=== PATIENT | male | born 1955 | race Caucasian/White ===

== ENCOUNTER → 2017-11-08 08:12 | Outpatient (CLI) | payer OTHER, SELFPAY ==
[2017-11-08 09:41] LABS: AST(SGOT) 24 U/L (15-37); Alanine Aminotransfer ALT/SGPT 31 U/L (16-61); Albumin, Serum 3.8 g/dL (3.2-5.0); Alkaline Phosphatase 76 U/L (45-117); Bilirubin, Direct 0.16 mg/dL (0.00-0.30); Cholesterol 104 mg/dL (200); Globulin 3.2 g/dL (2.2-4.2); High Density Lipoprotein 35 mg/dL; Triglycerides 89 mg/dL; Very Low Density Lipoprotein 18 mg/dL (5-40)
== END ==
PROVIDERS: Family Provider Family Medicine; PCP Family Medicine; Visit Provider Internal Medicine Cardiovascular Disease
DX: I25.10 Atherosclerotic heart disease of native coronary artery without angina pectoris (principal); Z95.5 Presence of coronary angioplasty implant and graft; E78.5 Hyperlipidemia, unspecified; I25.2 Old myocardial infarction; I10 Essential (primary) hypertension; Z79.899 Other long term (current) drug therapy; Z68.26 Body mass index [BMI] 26.0-26.9, adult
CPT/HCPCS: 36415; 80061; 80076

== ENCOUNTER → 2017-12-28 13:36 | Outpatient (CLI) | payer OTHER, SELFPAY ==
--- NOTE | 2017-12-28 13:38 | STE_ITS ---
Reason For Study: CAD/ASHD Stress Results Protocol: Stress Echocardiogram Maximum Predicted HR: 158 bpm Target HR: 134 bpm% Maximum Pr edicted HR: 107 % DurationHeart Rate Stage (mm:ss) (bpm) BPCom ment BASELINE 80 164/86 MARIANO PROTOCOL- STAGE 1 3:00 10 7 178/76 MARIANO PROTOCOL- STAGE 2 3:00 12 5 210/72 MARIANO PROTOCOL- STAGE 3 3:00 15 5 202/72 MARIANO PROTOCOL- STAGE 4 0:39 16 9 / LEG FATIGUE RECOVERY 98 164/70 Stress Duration: 9:39 mm:ss Maximum Stress HR: 169 bpm Baseline Echocardiogram Findings The estimated ejection fraction is 65 %. Stress Echo Wall motion Data Resting WMIntermediate WMStress WM Resting Wall Motion Wall Motion Stress No regional wall motion No regional wall motion abnormalities noted. abnormalities noted. EKG Data The baseline ECG demonstrates normal sinus rhythm with at rate of _ beats per minute. The patient exercised according to the regular Mariano protocol for a total duration of 9:39. The maximum heart rate attained was 193 beats per minute. This was 122% of maximum predicted heart rate. The patient exercised into stage 4 of the Mariano protocol. At peak exercise, upsloping ST changes only were noted, which did not meet the criteria for ischemia. No clinical angina was noted. No arrhythmias noted. Interpretation Summary The estimated ejection fraction is 65 %. Normal, adequate, treadmill echocardiogram. Negative for ischemia by EKG and echocardiographic criteria. No anginal symptoms noted. No arrhythmias noted. Hypertensive blood pressure response to exercise. Above average exercise capacity for age. Final LVEF is 75%. No complications. Ordering Physician: Luis Alberto Byrnes Referring Physician: Luis Alberto Byrnes Performed By: Caryn Carlisle, TATICS, RVT
== END ==
PROVIDERS: Family Provider Family Medicine; PCP Family Medicine; Visit Provider Internal Medicine Cardiovascular Disease
DX: I25.10 Atherosclerotic heart disease of native coronary artery without angina pectoris (principal); I10 Essential (primary) hypertension; E66.3 Overweight; E78.5 Hyperlipidemia, unspecified; Z95.5 Presence of coronary angioplasty implant and graft
CPT/HCPCS: 93017; 93350

== ENCOUNTER → 2018-06-12 10:39 | Outpatient (CLI) | payer OTHER, SELFPAY ==
[2017-11-13 13:29] VITALS: BMI 26.9
[2018-06-12 12:10] LABS: Anion Gap 7 (5-15); BUN 17 mg/dL (7-18); BUN/Creat Ratio 12.7 RATIO (10-20); Calcium,Total 8.7 mg/dL (8.5-10.1); Chloride 103 mmol/L (98-107); Creatinine, Serum 1.34 mg/dL (0.70-1.30); EST Glomerular Filtration Rate 57 mL/min (>60); Est Glom Filt Rate - Afr Amer 69 mL/min (>60); Glucose 135 mg/dL (74-106); Potassium 3.6 mmol/L (3.5-5.1); Sodium Level 139 mmol/L (136-145)
[2018-06-12 12:12] LABS: AST(SGOT) 24 U/L (15-37); Alanine Aminotransfer ALT/SGPT 35 U/L (16-61); Albumin, Serum 3.8 g/dL (3.2-5.0); Alkaline Phosphatase 79 U/L (45-117); Bilirubin, Direct 0.14 mg/dL (0.00-0.30); Cholesterol 164 mg/dL (200); Globulin 3.6 g/dL (2.2-4.2); High Density Lipoprotein 36 mg/dL; Protein, Total 7.4 g/dL (6.4-8.2); Triglycerides 216 mg/dL; Very Low Density Lipoprotein 43 mg/dL (5-40)
== END ==
PROVIDERS: Physician Assistant Medical; Family Provider Family Medicine; PCP Family Medicine; Referring Provider Family Medicine; Visit Provider Family Medicine
DX: I10 Essential (primary) hypertension (principal); Z12.5 Encounter for screening for malignant neoplasm of prostate
CPT/HCPCS: 36415; 80048; 80061; 80076; 84153; G0103

== ENCOUNTER → 2018-08-10 09:25 | Outpatient (CLI) | payer OTHER, SELFPAY ==
[2018-06-18 15:06] VITALS: BMI 27.9
[2018-08-10 11:12] LABS: Cholesterol 100 mg/dL (200); High Density Lipoprotein 37 mg/dL; Triglycerides 117 mg/dL; Very Low Density Lipoprotein 23 mg/dL (5-40)
[2018-08-10 11:20] LABS: AST(SGOT) 22 U/L (15-37); Alanine Aminotransfer ALT/SGPT 33 U/L (16-61); Albumin, Serum 4.1 g/dL (3.2-5.0); Alkaline Phosphatase 78 U/L (45-117); Bilirubin, Direct 0.12 mg/dL (0.00-0.30); Globulin 3.7 g/dL (2.2-4.2); Protein, Total 7.8 g/dL (6.4-8.2)
== END ==
PROVIDERS: Family Provider Family Medicine; PCP Family Medicine; Referring Provider Internal Medicine Cardiovascular Disease; Visit Provider Internal Medicine Cardiovascular Disease
DX: E78.5 Hyperlipidemia, unspecified (principal); I25.10 Atherosclerotic heart disease of native coronary artery without angina pectoris
CPT/HCPCS: 36415; 80061; 80076

== ENCOUNTER → 2019-02-15 10:56 | Outpatient (CLI) | payer OTHER, SELFPAY ==
[2019-01-17 13:57] VITALS: BMI 27.6
--- NOTE | 2019-02-15 11:00 | ECHOD_ITS ---
Reason For Study: CAD/ASHD Procedure This was a 2D Doppler, Color Flow transthoracic echocardiogram. Exam performed in department. Left Ventricle Mild eccentric left ventricular hypertrophy. The estimated ejection fraction is 65 %. Normal diastology for age. No regional wall motion abnormalities noted. Right Ventricle Normal size and thickness. Normal systolic function. Atria Normal left atrium. Normal right atrium. Normal atrial septum. Mitral Valve The mitral valve is structurally normal. No prolapse or stenosis seen. Tricuspid Valve Normal tricuspid valve. Trivial tricuspid valve insufficiency. Right ventricular systolic pressure estimated to be 31 mmHg. Aortic Valve Normal aortic valve. Trisinus/trileaflet aortic valve. Pulmonic Valve Normal pulmonic valve. Trivial pulmonic valve insufficiency. Great Vessels Normal aortic root. Normal arch. Normal inferior vena cava. Inferior vena cava collapse with sniff. Pericardium/Pleural No pericardial effusion. MMode/2D Measurements & Calculations LVIDd: 4.3 cm IVSd: 1.5 cm LA dimension: 4.2 cm LVIDs: 2.8 cm LVPWd: 1.1 cm FS: 34.3 % LAV(MOD-bp): 46.4 ml LA A4 area: 18.1 cm2 RA A4 area: 16.2 cm2 LAV(MOD-bp) Indexed: 24.0 ml/m2 LAV(MOD-sp2): 42.3 ml LAV(MOD-sp4): 50.7 ml Time Measurements MV dec time: 0.25 sec Doppler Measurements & Calculations MV E max terence: 69.1 cm/sec Lat Peak E' Terence: 9.2 cm/sec Med Peak E' Terence: 7.5 cm/sec MV A max terence: 51.4 cm/sec E/E' lat: 7.5 E/E' med: 9.2 MV E/A: 1.3 MV V2 max: 70.6 cm/sec MV P1/2t max terence: 70.6 cm/sec Ao V2 max: 97.1 cm/sec MV max P.0 mmHg MV P1/2t: 79.9 msec Ao max P.8 mmHg MV V2 mean: 36.3 cm/sec MV dec slope: 258.8 cm/sec2 Ao V2 mean: 62.2 cm/sec MV mean P.63 mmHg MVA(P1/2t): 2.8 cm2 Ao mean P.8 mmHg MV V2 VTI: 26.3 cm Ao V2 VTI: 19.0 cm LV V1 max: 80.3 cm/sec PA V2 max: 105.0 cm/sec PI end-d terence: 83.8 cm/sec LV V1 max P.6 mmHg LV V1 mean P.2 mmHg LV V1 mean: 50.2 cm/sec LV V1 VTI: 17.3 cm TR max terence: 253.9 cm/sec TR max P.8 mmHg Interpretation Summary The estimated ejection fraction is 65 %. Normal diastology for age. Mild eccentric left ventricular hypertrophy. Right ventricular systolic pressure estimated to be 31 mmHg. Compared to echo report dated 03/03/2014, no appreciable changes noted. Ordering Physician: Luis Alberto Byrnes Referring Physician: Jarred Larsen MD Performed By: Moises Valle RCS
== END ==
PROVIDERS: Family Provider Family Medicine; PCP Family Medicine; Referring Provider Internal Medicine Cardiovascular Disease; Visit Provider Internal Medicine Cardiovascular Disease
DX: I25.10 Atherosclerotic heart disease of native coronary artery without angina pectoris (principal); I21.4 Non-ST elevation (NSTEMI) myocardial infarction; E78.5 Hyperlipidemia, unspecified; I10 Essential (primary) hypertension; Z95.5 Presence of coronary angioplasty implant and graft
CPT/HCPCS: 93306

== ENCOUNTER → 2019-02-21 09:06 | Outpatient (CLI) | payer OTHER, SELFPAY ==
[2019-01-17 13:57] VITALS: BMI 27.6
--- NOTE | 2019-02-21 09:08 | STEWCON_ITS ---
Reason For Study: CAD Stress Results Protocol: Mariano Protocol Maximum Predicted HR: 157 bpm Target HR: 133 bpm % Maximum Predicted HR: 97 % DurationHeart Rate Stage (mm:ss) (bpm) BP Comment Baseline 86 150/78No Chest Pain; 4 ML Diluted Definity Given Mariano Protocol Stage I 3:00 100 158/78No Chest Pain Mariano Protocol Stage II 3:00 120 174/70No Chest Pain Mariano Protocol Stage III 3:00 139 182/68No Chest Pain; Mild Dyspnea Mariano Protocol Stage IV 1:00 153 / No Chest Pain; Moderate Dyspnea Recovery 97 150/68No Chest Pain Stress Duration: 10:00 mm:ss Maximum Stress HR: 153 bpm METS: 13 Baseline Echocardiogram Findings The estimated ejection fraction is 65 %. Stress Echo Wall motion Data Resting WM Intermediate WM Stress WM Resting Wall Motion Wall Motion Stress No regional wall motion No regional wall motion abnormalities noted. abnormalities noted. EKG Data The baseline ECG displays normal sinus rhythm. The patient exercised according to the regular Mariano protocol for a total duration of 10:00. The maximum heart rate attained was 169 beats per minute. This was 107% of maximum predicted heart rate. The patient exercised into stage 4 of the Mariano protocol. During stress, there were no ST or T wave changes noted to suggest ischemia. No clinical angina was noted. Interpretation Summary The estimated ejection fraction is 65 %. Normal, adequate, treadmill echocardiogram. Negative for ischemia by EKG and echocardiographic criteria. No anginal symptoms noted. Rare PVCs noted. Appropriate blood pressure response to exercise. Average exercise capacity for age. Final LVEF is 75%. Test terminated due to fatigue. Decreased sensitivity due to poor echo windows requiring Definity agent. No complications. The study was technically difficult. Contrast injection was performed. Ordering Physician: Luis Alberto Byrnes Referring Physician: Jarred Larsen Performed By: Irma Ortega RDCS
== END ==
PROVIDERS: Family Provider Family Medicine; PCP Family Medicine; Referring Provider Internal Medicine Cardiovascular Disease; Visit Provider Internal Medicine Cardiovascular Disease
DX: I25.10 Atherosclerotic heart disease of native coronary artery without angina pectoris (principal); I10 Essential (primary) hypertension; E78.5 Hyperlipidemia, unspecified
CPT/HCPCS: 93017; 93350; Q9957; A4216; C8928

== ENCOUNTER → 2019-03-15 10:45 | Outpatient (CLI) | payer OTHER, SELFPAY ==
[2019-01-17 13:57] VITALS: BMI 27.6
[2019-03-15 12:39] LABS: AST(SGOT) 27 U/L (15-37); Alanine Aminotransfer ALT/SGPT 35 U/L (16-61); Albumin, Serum 3.7 g/dL (3.2-5.0); Alkaline Phosphatase 81 U/L (45-117); Bilirubin, Direct 0.11 mg/dL (0.00-0.30); Cholesterol 132 mg/dL (200); Globulin 3.5 g/dL (2.2-4.2); High Density Lipoprotein 34 mg/dL; Protein, Total 7.2 g/dL (6.4-8.2); Triglycerides 182 mg/dL; Very Low Density Lipoprotein 36 mg/dL (5-40)
[2019-03-15 15:10] LABS: Anion Gap 4 (5-15); BUN 17 mg/dL (7-18); Calcium,Total 8.6 mg/dL (8.5-10.1); Chloride 106 mmol/L (98-107); Creatinine, Serum 1.31 mg/dL (0.70-1.30); EST Glomerular Filtration Rate 59 mL/min (>60); Est Glom Filt Rate - Afr Amer 71 mL/min (>60); Glucose 118 mg/dL (74-106); Potassium 4.1 mmol/L (3.5-5.1); Sodium Level 138 mmol/L (136-145)
== END ==
PROVIDERS: Family Provider Family Medicine; PCP Family Medicine; Referring Provider Internal Medicine Cardiovascular Disease; Visit Provider Internal Medicine Cardiovascular Disease
DX: E78.5 Hyperlipidemia, unspecified (principal); I10 Essential (primary) hypertension
CPT/HCPCS: 36415; 80048; 80061; 80076

== ENCOUNTER → 2020-03-03 07:54 | Outpatient (CLI) | payer OTHER, SELFPAY ==
[2020-03-02 14:43] VITALS: BMI 27.3
[2020-03-03 11:23] LABS: AST(SGOT) 19 U/L (15-37); Alanine Aminotransfer ALT/SGPT 30 U/L (16-61); Albumin, Serum 3.8 g/dL (3.2-5.0); Alkaline Phosphatase 78 U/L (45-117); Bilirubin, Direct 0.15 mg/dL (0.00-0.30); Cholesterol 128 mg/dL (200); Globulin 3.5 g/dL (2.2-4.2); High Density Lipoprotein 37 mg/dL; Protein, Total 7.3 g/dL (6.4-8.2); Triglycerides 126 mg/dL; Very Low Density Lipoprotein 25 mg/dL (5-40)
== END ==
PROVIDERS: PCP Family Medicine; Referring Provider Internal Medicine Cardiovascular Disease; Visit Provider Internal Medicine Cardiovascular Disease
DX: E78.5 Hyperlipidemia, unspecified (principal); I25.10 Atherosclerotic heart disease of native coronary artery without angina pectoris
CPT/HCPCS: 36415; 80061; 80076

== ENCOUNTER → 2021-05-25 09:53 | Outpatient (CLI) | payer MEDICARE, OTHER, SELFPAY ==
[2021-05-25 11:13] LABS: Absolute Lymphocyte Count 2.39 X10^3/uL (0.83-4.51); Absolute Neutrophil Count 3.5 X10^3/uL (2.0-7.7); Basophil# 0.03 X10^3/uL; Basophil% 0.4 % (0-1); Eosinophil# 0.25 X10^3/uL; Eosinophils% 3.7 % (0-5); Hematocrit 49.6 % (40-54); Hemoglobin 16.1 g/dL (13.0-16.5); Lymphocyte # 2.39 X10^3/ul (0.83-4.51); Lymphocyte % 35.1 % (19-41); Mean Corp Hgb Conc 32.5 g/dL (32-36); Mean Corpuscular Hgb 28.7 pg (27.0-32.0); Mean Corpuscular Volume 88.4 fL (80-94); Mean Platelet Vol. 9.3 fl (6.2-12.0); Monocyte# 0.58 X10^3/uL; Monocyte% 8.5 % (0-10); NRBC Flagged by Analyzer 0 % (0-5); Neutrophil # 3.53 X10^3/uL (2.7-7.7); Platelet Count 336 K/mm3 (150-450); RBC Distribution Width CV 12.1 % (11.6-14.6); Red Blood Count 5.61 M/mm3 (4.6-6.2); White Blood Count 6.8 K/mm3 (4.4-11.0)
[2021-05-25 11:45] LABS: AST(SGOT) 27 U/L (15-37); Alanine Aminotransfer ALT/SGPT 38 U/L (16-61); Albumin, Serum 3.9 g/dL (3.2-5.0); Alkaline Phosphatase 100 U/L (45-117); Anion Gap 6 (5-15); BUN 18 mg/dL (7-18); BUN/Creat Ratio 14.5 RATIO (10-20); Calcium,Total 9.1 mg/dL (8.5-10.1); Chloride 102 mmol/L (98-107); Cholesterol 146 mg/dL (200); Creatinine, Serum 1.24 mg/dL (0.70-1.30); EST Glomerular Filtration Rate 62 mL/min (>60); Est Glom Filt Rate - Afr Amer 75 mL/min (>60); Globulin 4.1 g/dL (2.2-4.2); Glucose 149 mg/dL (74-106); High Density Lipoprotein 34 mg/dL; Potassium 4.3 mmol/L (3.5-5.1); Sodium Level 138 mmol/L (136-145); Triglycerides 202 mg/dL; Very Low Density Lipoprotein 40 mg/dL (5-40)
== END ==
PROVIDERS: PCP Family Medicine; Referring Provider Family Medicine; Visit Provider Family Medicine
DX: I25.10 Atherosclerotic heart disease of native coronary artery without angina pectoris (principal); E55.9 Vitamin D deficiency, unspecified
CPT/HCPCS: 36415; 80053; 80061; 82306; 85025

== ENCOUNTER → 2022-06-27 | Outpatient (CLI) | payer MEDICARE, OTHER, SELFPAY ==
[2022-06-27 15:49] LABS: Vitamin D,25 Hydroxy 58.4 ng/mL
[2022-06-27 16:06] LABS: ALB/GLOB Ratio 1.1 RATIO (0.9-2.4); AST(SGOT) 25 U/L (15-37); Alanine Aminotransfer ALT/SGPT 46 U/L (16-61); Albumin, Serum 3.8 g/dL (3.2-5.0); Alkaline Phosphatase 89 U/L (45-117); Anion Gap 7 (5-15); BUN 20 mg/dL (7-18); BUN/Creat Ratio 17.1 RATIO (10-20); Chloride 106 mmol/L (98-107); Cholesterol 161 mg/dL (200); Creatinine, Serum 1.17 mg/dL (0.70-1.30); EST Glomerular Filtration Rate 66 mL/min (>60); Est Glom Filt Rate - Afr Amer 80 mL/min (>60); Globulin 3.5 g/dL (2.2-4.2); Glucose 151 mg/dL (74-106); High Density Lipoprotein 36 mg/dL; PSA,Total - Annual Screen 1.44 ng/mL (0.00-4.00); Potassium 4.7 mmol/L (3.5-5.1); Protein, Total 7.3 g/dL (6.4-8.2); Sodium Level 141 mmol/L (136-145); Triglycerides 200 mg/dL; Very Low Density Lipoprotein 40 mg/dL (5-40)
== END | disposition home or self-care (01) ==
LOC: MFPLAB 11:15
PROVIDERS: PCP Family Medicine; Visit Provider Family Medicine
DX: E11.9 Type 2 diabetes mellitus without complications (principal); E55.9 Vitamin D deficiency, unspecified; Z12.5 Encounter for screening for malignant neoplasm of prostate
CPT/HCPCS: 36415; 80053; 80061; 82306; 84153; 84403; 84443; G0103

== ENCOUNTER → 2023-03-30 | Outpatient (CLI) | payer MEDICARE, OTHER, SELFPAY ==
[2023-03-30 09:33] LABS: Vitamin B12 1015 pg/mL (211-911)
[2023-03-30 09:34] LABS: AST(SGOT) 37 U/L (15-37); Alanine Aminotransfer ALT/SGPT 49 U/L (16-61); Albumin, Serum 3.8 g/dL (3.2-5.0); Alkaline Phosphatase 88 U/L (45-117); Anion Gap 2 (5-15); BUN 20 mg/dL (7-18); BUN/Creat Ratio 16.5 RATIO (10-20); Calcium,Total 8.8 mg/dL (8.5-10.1); Chloride 110 mmol/L (98-107); Cholesterol 124 mg/dL (200); Creatinine, Serum 1.21 mg/dL (0.70-1.30); EST Glomerular Filtration Rate 64 mL/min (>60); Est Glom Filt Rate - Afr Amer 77 mL/min (>60); Globulin 3.7 g/dL (2.2-4.2); Glucose 143 mg/dL (74-106); High Density Lipoprotein 35 mg/dL; Potassium 3.9 mmol/L (3.5-5.1); Protein, Total 7.5 g/dL (6.4-8.2); Sodium Level 140 mmol/L (136-145); Thyroid Stim Hormone (TSH) 3.65 uIU/mL (0.358-3.74); Triglycerides 159 mg/dL; Very Low Density Lipoprotein 32 mg/dL (5-40)
== END | disposition home or self-care (01) ==
PROVIDERS: PCP Family Medicine; Referring Provider Family Medicine; Visit Provider Family Medicine
DX: E11.9 Type 2 diabetes mellitus without complications (principal)
CPT/HCPCS: 36415; 80053; 80061; 82607; 84403; 84443

== ENCOUNTER 2023-11-17 19:25 | Emergency (ER) | payer MEDICARE, OTHER, SELFPAY ==
[2023-11-17 19:26] VITALS: BP 152/70; PULSE 74; RESP 18; TEMP 36.6; O2SAT 93
--- NOTE | 2023-11-17 19:57 | RAD_ITS ---
STUDY: X-RAY - LEFT ANKLE REASON FOR EXAM: Male, 68 years old. fall TECHNIQUE: view(s) of the ankle. COMPARISON: None. FINDINGS: Acute slightly posteriorly displaced oblique fracture of the distal left fibula at the level tibial plafond. Normal medial and lateral malleoli. Slight lateral subluxation of tibiotalar joint. Normal visualized talus and calcaneus. The visualized subtalar, talonavicular, calcaneocuboid and tarsal articulations are normal. Lateral soft tissue swelling. RAD/Ankle min 3 Views IMPRESSION: Slight lateral subluxation of the tibiotalar joint with a posteriorly displaced oblique fracture of the distal fibula at the tibial plafond. Electronically Signed: Oj Bloom MD at 20:52 EDT ,
--- NOTE | 2023-11-17 20:49 | EDS_ITS ---
HPI <MARLEE Russo - Last Filed: 11/17/23 21:39> HPI - Fall History of Present Illness Chief Complaint: Fall Narrative Narrative: Patient presenting today with left ankle pain due to a mechanical fall that occurred this evening. He reports that he was on a ladder when the ladder fell, he got his left foot stuck between 2 of the steps causing it to bend awkwardly. He has not been able to put weight onto his left ankle due to pain. He denies hitting his head or any other injury. PFS <MARLEE Russo - Last Filed: 11/17/23 21:39> FORMERLY [facility], 1928–1983 Medical History (Updated 11/17/23 @ 21:08 by MARLEE Russo) Atherosclerotic heart disease of [place] coronary artery without angina pectoris HLD (hyperlipidemia) HTN (hypertension) NSTEMI (non-ST elevated myocardial infarction) Overweight (BMI 25.0-29.9) Unstable angina Home Medications aspirin 81 mg tablet,delayed release (Adult Aspirin Regimen) 81 mg PO QDAY 06/28/17 [History Last Taken Unknown] amlodipine 5 mg tablet (Norvasc) 5 mg PO DAILY #90 tabs 09/10/19 [Rx Last Taken Unknown] losartan 50 mg tablet 50 mg PO BID #180 tabs 02/13/20 [Rx Last Taken Unknown] metoprolol tartrate 50 mg tablet 50 mg PO BID #180 tabs 02/14/20 [Rx Last Taken Unknown] L.ac,demetra,par,plan,rah-B.an,bi-L.la 7.5 billion cell oral powder packet (OMNi- BiOTiC Stress Release) 1 ea PO DAILY 11/17/23 [History Last Taken Unknown] ascorbic acid (vitamin C) 500 mg chewable tablet (Acerola C) 500 mg PO 4X/DAY 11/17/23 [History Last Taken Unknown] calcium carbonate (Adeline-Merna Heartburn Chew) 300 mg PO DAILY PRN dyspepsia 11/17/23 [History Last Taken Unknown] cholecalciferol (vitamin D3) 25 mcg (1,000 unit) chewable tablet (Vitamin D3) 1,000 unit PO 4X/DAY 11/17/23 [History Last Taken Unknown] coenzyme Q10 50 mg capsule (Co Q-10) 50 mg PO BID 11/17/23 [History Last Taken Unknown] dapagliflozin propanediol 5 mg tablet (Farxiga) 5 mg PO DAILY 11/17/23 [History Last Taken Unknown] glucosamine 500 mg-msm 100 mg-vit C 20 ye-fzzlw-rpzn-primrose capsule (Joint Support Complex) 1 cap PO BID 11/17/23 [History Last Taken Unknown] hydrocodone-acetaminophen 5-325mg 5mg-325mg 1 tab PO Q6H PRN PRN Pain 3 days #10 TABLETS 11/17/23 [Rx Last Taken Unknown] multivitamin (Daily Multi-Vitamin tablet) 1 tab PO BID 11/17/23 [History Last Ta dana Unknown] rosuvastatin 40 mg tablet 40 mg PO DAILY 11/17/23 [History Last Taken Unknown] sodium chloride 0.65 % nasal spray aerosol (Altamist) 1 spray intranasal DAILY 11/17/23 [History Last Taken Unknown] triamcinolone acetonide 55 mcg nasal spray aerosol (24 Hour Nasal Allergy) 1 spray intranasal DAILY 11/17/23 [History Last Taken Unknown] Allergy/AdvReac Type Severity Reaction Status Date / Time hydrochlorothiazide AdvReac UTI-like Verified 11/17/23 19:29 symptoms: urinary pain Family History Father CAD (coronary artery disease) Myocardial infarction, Onset Age: 40 Surgical History Hx of appendectomy Postsurgical percutaneous transluminal coronary angioplasty (PTCA) status (03/03/14) Presence of stent in coronary artery (03/03/14) Social History Smoking Status: Never smoker alcohol intake: never substance use type: does not use ROS <MARLEE Russo - Last Filed: 11/17/23 21:39> ROS ED Constitutional Constitutional ED: Denies chills or fever(s) Cardiovascular Cardiovascular: Denies chest pain Respiratory/Chest Respiratory/Chest: Denies cough or dyspnea Gastrointestinal Gastrointestinal: Denies abdominal pain, nausea or vomiting Musculoskeletal Musculoskeletal: Reports arthralgias; Denies back pain or neck pain Integumentary Denies Abrasions Neurologic Neurologic: Denies paresthesias or weakness EXAM <MARLEE Russo - Last Filed: 11/17/23 21:39> Physical Exam Const Vital Signs: 11/17/23 19:26 11/17/23 21:05 11/17/23 21:26 Temperature 97.8 F 98.0 F Temperature Source Temporal Pulse Rate 74 80 Respiratory Rate 18 16 Respiratory Effort Normal Respiratory Depth Normal Respiratory Pattern Normal Blood Pressure 152/70 H 143/108 H Blood Pressure Mean 97 119 Pulse Ox 93 100 Oxygen Delivery Method Room Air Room Air Positive well nourished, well developed and no apparent distress General Appearance ED: well developed HEENT Reports normocephalic and head/scalp atraumatic Mouth ED: Yes moist mucous membranes normal Eyes PERRL and EOMs intact bilaterally Neck full ROM and supple Chest Wall inspection of chest normal Resp normal respiratory effort and clear to auscultation bilaterally Cardio regular rate and regular rhythm GI soft to palpation, non-tender, non-distended and no masses Back/Spine normal ROM and normal to inspection Extremity Extremity Narrative: Edema and pain to palpation to the left lateral malleolus, no tenderness to the left foot. Left DP pulse 2+, good capillary refill, sensation intact. Limited ROM to the left ankle due to pain. No proximal fibular tenderness. Neuro oriented x3, CN's II-XII intact bilaterally, moves all extremities, no focal motor deficits and no sensory deficits noted Sensorium / Orientation: awake and alert Psych mental status grossly normal and thought process normal Skin no rashes or lesions noted and no wounds <Dr. Tye Mcadams MD - Last Filed: 11/18/23 00:44> Physical Exam Const Vital Signs: 11/17/23 19:26 11/17/23 21:05 11/17/23 21:26 Temperature 97.8 F 98.0 F Temperature Source Temporal Pulse Rate 74 80 Respiratory Rate 18 16 Respiratory Effort Normal Respiratory Depth Normal Respiratory Pattern Normal Blood Pressure 152/70 H 143/108 H Blood Pressure Mean 97 119 Pulse Ox 93 100 Oxygen Delivery Method Room Air Room Air MDM <MARLEE Russo - Last Filed: 11/17/23 21:39> [facility] Narrative Medical decision making narrative: Patient presenting today with a fracture to his left lateral malleolus with widening of the mortise. I did offer analgesia, he declines. Spoke with podiatry, patient is to be nonweightbearing and will likely require surgery. EKG was obtained for preoperative purposes, normal sinus rhythm. Patient was provided with crutches and placed in a splint. He tolerated this well. He will be given a prescription for [place] and RICE instructions. He will be discharged home in stable condition. Lab Data Attestation: I reviewed the patient's lab results. Lab results narrative: WBC 12.1 BUN 21, creatinine 1.34 Labs: Laboratory Results - last 24 hr 11/17/23 21:05 WBC 12.1 H RBC 5.42 Hgb 15.8 Hct 47.4 MCV 87.5 MCH 29.2 MCHC 33.3 RDW Std Deviation 40.9 RDW Coeff of Smiley 12.7 Plt Count 285 MPV 8.9 Immature Gran % (Auto) 0.200 Neut % (Auto) 79.1 H Lymph % (Auto) 12.1 L Ida % (Auto) 8.0 Eos % (Auto) 0.3 Baso % (Auto) 0.3 Absolute Neuts (auto) 9.6 H Absolute Lymphs (auto) 1.47 Nucleated RBC % 0 Sodium 140 Potassium 3.9 Chloride 109 H Carbon Dioxide 25.0 Anion Gap 6 BUN 20 H Creatinine 1.34 H Estim Creat Clear Calc 56.35 Est GFR (MDRD) Af Amer 68 Est GFR (MDRD) Non-Af 56 L BUN/Creatinine Ratio 14.9 Glucose 150 H Calcium 9.7 Radiography X-Ray: Read by ED Physician Diagnostic Testing: Clinical Impression(s) from Imaging Studies Ankle X-Ray 11/17/23 19:57 IMPRESSION: Slight lateral subluxation of the tibiotalar joint with a posteriorly displaced oblique fracture of the distal fibula at the tibial plafond. Electronically Signed: Oj Bloom MD at 20:52 EDT , Chest X-Ray 11/17/23 21:18 IMPRESSION: No active disease. Electronically Signed: Oj Bloom MD at 22:19 EDT , EKG Initial EKG: Comments: 79 bpm, normal sinus rhythm, no ST elevation, reviewed and interpreted by attending ED physician <Dr. Tye Mcadams MD - Last Filed: 11/18/23 00:44> [facility] Narrative Medical decision making narrative: Patient presenting today with a fracture to his left lateral malleolus with widening of the mortise. I did offer analgesia, he declines. Spoke with podiatry, patient is to be nonweightbearing and will likely require surgery. EKG was obtained for preoperative purposes, normal sinus rhythm. Patient was provided with crutches and placed in a splint. He tolerated this well. He will be given a prescription for [place] and RICE instructions. He will be discharged home in stable condition. I have personally performed a face to face assessment of the patient and have reviewed the MARYAM Note. I performed a substantive portion of the visit including all aspects of the following. My booker findings include: History is patient was on a ladder. The ladder collapsed. His foot/ankle was caught between the first and second rung. His weight came down a ladder and injured his ankle. He was unable to bear weight. Patient has paresthesia, anesthesia medics. His past medical history of atherosclerotic heart disease, hypertension, hyperlipidemia. Exam is patient has pain outpatient over the lateral malleolus and over the deltoid ligament medially. There is no like for drawer testing. No pain the patient of the base of the fifth metatarsal. DP PT pulse are palpable. There is no pain outpatient over the fibular head or joint line of the knee/tibial plateau. Medical Decision Making x-ray was obtained which reveals a comminuted minimally displaced spiral distal lateral malleolus fracture with widening of the mortise. This is an unstable fracture. Patient was made aware that. Dr. Sanon was contacted. Patient was placed in a short leg posterior and stirrup plaster splint that was fabricated by me. He is nonweightbearing. Was discharged home with appropriate home-going structures. To contact Dr. Sanon's office tomorrow for appointment to be seen on Monday. Other additions or changes: [None] Lab Data Labs: Laboratory Results - last 24 hr 11/17/23 21:05 WBC 12.1 H RBC 5.42 Hgb 15.8 Hct 47.4 MCV 87.5 MCH 29.2 MCHC 33.3 RDW Std Deviation 40.9 RDW Coeff of Smiley 12.7 Plt Count 285 MPV 8.9 Immature Gran % (Auto) 0.200 Neut % (Auto) 79.1 H Lymph % (Auto) 12.1 L Ida % (Auto) 8.0 Eos % (Auto) 0.3 Baso % (Auto) 0.3 Absolute Neuts (auto) 9.6 H Absolute Lymphs (auto) 1.47 Nucleated RBC % 0 Sodium 140 Potassium 3.9 Chloride 109 H Carbon Dioxide 25.0 Anion Gap 6 BUN 20 H Creatinine 1.34 H Estim Creat Clear Calc 56.35 Est GFR (MDRD) Af Amer 68 Est GFR (MDRD) Non-Af 56 L BUN/Creatinine Ratio 14.9 Glucose 150 H Calcium 9.7 Radiography Diagnostic Testing: Clinical Impression(s) from Imaging Studies Ankle X-Ray 11/17/23 19:57 IMPRESSION: Slight lateral subluxation of the tibiotalar joint with a posteriorly displaced oblique fracture of the distal fibula at the tibial plafond. Electronically Signed: Oj Bloom MD at 20:52 EDT Reading Location ID and State: [id number] / [place] Tel , Service support , Chest X-Ray 11/17/23 21:18 IMPRESSION: No active disease. Electronically Signed: Oj Bloom MD at 22:19 EDT Reading Location ID and State: [id number] / [place] Tel , Service support , Procedures <Dr. Tye Mcadams MD - Last Filed: 11/18/23 00:44> Lower Extremity Splints Lower Extremity Splint: Plaster and Stirrup Splint Fabrication: Fabricated (And posterior short leg.) Location: Left Discharge Plan Triage Chief Complaint: Fall ED Midlevel Provider: Perla Almeida ED Provider: Tye Mcadams Dx/Rx/DC Orders Clinical Impression: Ankle fracture, left, Fall Instructions: ED Ankle Fracture Prescriptions: New hydrocodone-acetaminophen [hydrocodone-acetaminophen] 5-325 mg tablet 1 tab PO Q6H PRN PRN (Reason: Pain) 3 Days Qty: 10 0RF No Action rosuvastatin 40 mg tablet 40 mg PO DAILY dapagliflozin propanediol [Farxiga] 5 mg tablet 5 mg PO DAILY triamcinolone acetonide [24 Hour Nasal Allergy] 55 mcg aerosol,spray 1 spray intranasal DAILY Rx Instructions: administer into each nostril Altamist 0.65 % aerosol,spray 1 spray intranasal DAILY multivitamin [Daily Multi-Vitamin] Tablet 1 tab PO BID ascorbic acid (vitamin C) [Acerola C] 500 mg tablet,chewable 500 mg PO 4X/DAY cholecalciferol (vitamin D3) [Vitamin D3] 25 mcg (1,000 unit) tablet,chewable 1,000 unit PO 4X/DAY OMNi-BiOTiC Stress Release 7.5 billion cell powder in packet 1 ea PO DAILY coenzyme Q10 [Co Q-10] 50 mg capsule 50 mg PO BID Joint Support Complex [id number] mg capsule 1 cap PO BID Adeline-Merna Heartburn Chew 300 mg (750 mg) tablet,chewable 300 mg PO DAILY PRN (Reason: dyspepsia) aspirin [Adult Aspirin Regimen] 81 mg tablet,delayed release (DR/EC) 81 mg PO QDAY amlodipine [Norvasc] 5 mg tablet 5 mg PO DAILY Qty: 90 3RF losartan 50 mg tablet 50 mg PO BID Qty: 180 3RF metoprolol tartrate 50 mg tablet 50 mg PO BID Qty: 180 3RF Primary Care Provider: Jarred Larsen Referrals: Jarred Larsen MD [Primary Care Provider] - Yogesh Sanon DPM [Med Staff - Active Staff] - 5-7 Days Activity Restrictions/Additional Instructions: 1. Elevate your toe above your nose 2. Apply ice 6-10 times a day 3. Take medication as needed 4. Must keep splint absolutely clean and dry 5. Do not put any weight on your left foot. Disposition Disposition: Home, Self Care Discharge Date/Time: 11/17/23 22:48
[2023-11-17 20:59] VITALS: BMI 28.8
[2023-11-17 21:13] LABS: Absolute Lymphocyte Count 1.47 X10^3/uL (0.83-4.51); Absolute Neutrophil Count 9.6 X10^3/uL (2.0-7.7); Basophil# 0.04 X10^3/uL; Basophil% 0.3 % (0-1); Eosinophil# 0.04 X10^3/uL; Eosinophils% 0.3 % (0-5); Hematocrit 47.4 % (40-54); Hemoglobin 15.8 g/dL (13.0-16.5); Lymphocyte # 1.47 X10^3/ul (0.83-4.51); Lymphocyte % 12.1 % (19-41); Mean Corp Hgb Conc 33.3 g/dL (32-36); Mean Corpuscular Hgb 29.2 pg (27.0-32.0); Mean Corpuscular Volume 87.5 fL (80-94); Mean Platelet Vol. 8.9 fl (6.2-12.0); Monocyte# 0.97 X10^3/uL; NRBC Flagged by Analyzer 0 % (0-5); Neutrophil # 9.55 X10^3/uL (2.7-7.7); Neutrophil % 79.1 % (47-70); Platelet Count 285 K/mm3 (150-450); RBC Distribution Width CV 12.7 % (11.6-14.6); RBC Distribution Width SD 40.9 fl (35.1-43.9); Red Blood Count 5.42 M/mm3 (4.6-6.2); White Blood Count 12.1 K/mm3 (4.4-11.0)
--- NOTE | 2023-11-17 21:18 | RAD_ITS ---
STUDY: X-RAY CHEST REASON FOR EXAM: Male, 68 years old. Preop TECHNIQUE: Single AP portable view of the chest. COMPARISON: None. FINDINGS: The lungs are clear and expanded. Slightly elevated right hemidiaphragm. Normal size heart. Normal mediastinum and shan. Normal visualized pulmonary arteries. Normal visualized aortic arch and descending thoracic aorta. Normal visualized thoracic spine. Normal visualized ribs, clavicles, and shoulders. There is no demonstrated abnormality of the visualized soft tissue structures of the upper abdomen. RAD/Chest 1 View (Portable) IMPRESSION: No active disease. Electronically Signed: jO Bloom MD at 22:19 EDT ,
[2023-11-17 21:26] VITALS: BP 143/108; PULSE 80; RESP 16; TEMP 36.7; O2SAT 100
[2023-11-17 21:27] LABS: Anion Gap 6 (5-15); BUN 20 mg/dL (7-18); BUN/Creat Ratio 14.9 RATIO (10-20); Calcium,Total 9.7 mg/dL (8.5-10.1); Chloride 109 mmol/L (98-107); Creatinine, Serum 1.34 mg/dL (0.70-1.30); EST Glomerular Filtration Rate 56 mL/min (>60); Est Glom Filt Rate - Afr Amer 68 mL/min (>60); Estimated Creatinine Clearance 56.35 ml/min; Glucose 150 mg/dL (74-106); Potassium 3.9 mmol/L (3.5-5.1); Sodium Level 140 mmol/L (136-145)
== END 2023-11-17 22:48 | disposition home or self-care (01) ==
LOC: ED 21:16
PROVIDERS: Emergency Provider Emergency Medicine; PCP Family Medicine; Visit Provider Emergency Medicine
DX: S82.392A Other fracture of lower end of left tibia, initial encounter for closed fracture (principal); W11.XXXA Fall on and from ladder, initial encounter; I25.10 Atherosclerotic heart disease of native coronary artery without angina pectoris; E78.5 Hyperlipidemia, unspecified; I10 Essential (primary) hypertension; I25.2 Old myocardial infarction; Z79.82 Long term (current) use of aspirin; Z79.899 Other long term (current) drug therapy; Z95.5 Presence of coronary angioplasty implant and graft
CPT/HCPCS: 71045; 73610; 80048; 85025; 93005; 99284; A4216

== ENCOUNTER → 2024-01-23 | Outpatient (CLI) | payer MEDICARE, OTHER, SELFPAY ==
[2024-01-23 15:56] LABS: Vitamin B12 1054 pg/mL (211-911)
[2024-01-23 16:00] LABS: AST(SGOT) 22 U/L (15-37); Alanine Aminotransfer ALT/SGPT 30 U/L (16-61); Albumin, Serum 3.8 g/dL (3.2-5.0); Alkaline Phosphatase 102 U/L (45-117); Anion Gap 5 (5-15); BUN 19 mg/dL (7-18); BUN/Creat Ratio 17.3 RATIO (10-20); Calcium,Total 9.3 mg/dL (8.5-10.1); Chloride 108 mmol/L (98-107); Cholesterol 110 mg/dL (200); EST Glomerular Filtration Rate 71 mL/min (>60); Est Glom Filt Rate - Afr Amer 86 mL/min (>60); Globulin 3.7 g/dL (2.2-4.2); Glucose 133 mg/dL (74-106); High Density Lipoprotein 34 mg/dL; PSA,Total - Annual Screen 1.69 ng/mL (0.00-4.00); Potassium 4.3 mmol/L (3.5-5.1); Protein, Total 7.5 g/dL (6.4-8.2); Sodium Level 139 mmol/L (136-145); Thyroid Stim Hormone (TSH) 2.26 uIU/mL (0.358-3.74); Triglycerides 148 mg/dL; Very Low Density Lipoprotein 30 mg/dL (5-40)
== END | disposition home or self-care (01) ==
LOC: MFPLAB 11:12
PROVIDERS: PCP Family Medicine; Visit Provider Family Medicine
DX: Z12.5 Encounter for screening for malignant neoplasm of prostate (principal); E11.65 Type 2 diabetes mellitus with hyperglycemia
CPT/HCPCS: 36415; 80053; 80061; 82607; 84153; 84403; 84443; G0103

== ENCOUNTER → 2025-02-17 | Outpatient (CLI) | payer MEDICARE, OTHER, SELFPAY ==
[2025-02-17 16:02] LABS: Creatinine, Urine (random) 69.30 mg/dL (39.00-259.00); Microalbumin,Random Urine 12.2 mg/L (<20 mg/L)
[2025-02-17 16:09] LABS: AST(SGOT) 23 U/L (<=37); Alanine Aminotransfer ALT/SGPT 28 U/L (<=46); Albumin, Serum 4.4 g/dL (3.4-4.8); Alkaline Phosphatase 99 U/L (40-129); Anion Gap 13 (5-15); BUN 18 mg/dL (4-19); BUN/Creat Ratio 17.5 RATIO (10-20); Calcium,Total 9.5 mg/dL (7.6-11.0); Carbon Dioxide 23.5 mmol/L (21.0-32.0); Chloride 104 mmol/L (98-108); Cholesterol 138 mg/dL (<=200); Globulin 2.9 g/dL (2.2-4.2); Glucose 136 mg/dL (70-99); Low Density Lipoprotein Calc. 65 mg/dL; PSA,Total - Annual Screen 1.16 ng/mL (0.02-4.00); Potassium 4.2 mmol/L (3.3-5.1); Triglycerides 191 mg/dL; Very Low Density Lipoprotein 38 mg/dL (5-40); Vitamin B12 1130 pg/mL (180-914); cholesterol:hdl ratio screen 3.92
== END | disposition home or self-care (01) ==
LOC: MFPLAB 11:51
PROVIDERS: PCP Family Medicine; Visit Provider Family Medicine
DX: E11.65 Type 2 diabetes mellitus with hyperglycemia (principal); Z12.5 Encounter for screening for malignant neoplasm of prostate
CPT/HCPCS: 80053; 80061; 82043; 82570; 82607; 84153; 84443; G0103

== ENCOUNTER → 2025-04-17 | Outpatient (CLI) | payer MEDICARE, OTHER, SELFPAY ==
[2025-04-17 15:47] LABS: Vitamin B12 758 pg/mL (180-914)
== END | disposition home or self-care (01) ==
LOC: MFPLAB 10:37
PROVIDERS: PCP Family Medicine; Visit Provider Family Medicine
DX: Z12.5 Encounter for screening for malignant neoplasm of prostate (principal); E11.65 Type 2 diabetes mellitus with hyperglycemia
CPT/HCPCS: 36415; 82607